=== PATIENT | female | born 1985 | race Caucasian/White ===

== ENCOUNTER 2020-07-28 13:10 | Emergency (ER) | payer OTHER ==
[~2020-07-28] VITALS: Ht 165.1 cm; Wt 52.2 kg
[2020-07-28 15:32] LABS: ABSOLUTE BASOPHILS 0.1 thou/uL (0.0-0.2); ABSOLUTE EOSINOPHILS 0.1 thou/uL (0.0-0.7); ABSOLUTE LYMPHOCYTES 2.3 thou/uL (0.8-5.3); ABSOLUTE MONOCYTES 0.4 thou/uL (0.0-1.2); ABSOLUTE NEUTROPHILS 3.1 thou/uL (1.6-8.1); BASOPHILS 0.9 %; EOSINOPHILS 1.5 %; HEMATOCRIT 39.7 % (37.0-47.0); HEMOGLOBIN 13.3 gm/dL (12.0-15.0); MCH 31.4 pg (26.0-34.0); MCHC 33.6 g/dL (28.0-37.0); MCV 93.6 fL (80.0-100.0); MONOCYTES 6.4 %; MPV 6.9 fl. (7.2-11.1); NUCLEATED RBCS 0 /100WBC; PLATELET COUNT* 332 thou/uL (150-400); POLYS 52.2 %; RBC 4.24 mil/uL (4.20-5.00); RDW-CV 12.7 % (10.5-14.5); WBC 5.9 thou/uL (4.0-11.0)
[2020-07-28 15:49] LABS: CALCIUM 8.5 mg/dL (8.5-10.1); CREATININE 0.6 mg/dL (0.6-1.3)
[2020-07-28 15:59] LABS: MAGNESIUM 2.2 mg/dL (1.8-2.4); TOTAL BILIRUBIN 0.3 mg/dL (<0.1-1.0); TOTAL PROTEIN 7.7 g/dL (6.4-8.2)
[2020-07-28 17:05] VITALS: BP 96/60
--- NOTE | 2020-07-28 17:12 | EKG ---
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 : 1985 Requested By: Lan Ceron Order Number: [id number] MD: Miguelito Ritchie Measurements Intervals [place] Rate: 75 P: 65 HI: 144 QRS: 1 QRSD: 106 T: 38 QT: 409 QTc: 457 Interpretive Statements Sinus rhythm Rsr' in V1 Low voltage, precordial leads No previous ECG available for comparison Electronically Signed On 07-28-2020 17:12:16 [employer] by Miguelito Ritchie [email or web address] <ELECTRONICALLY SIGNED> By: Miguelito Ritchie MD, [facility] 07/28/20 1712 1548 1548 Miguelito Ritchie MD, [facility] /EPI
== END 2020-07-28 17:07 | disposition home or self-care (01) ==
LOC: M.ERS 13:10
PROVIDERS: Emergency Medicine Emergency Medical Services
DX: I10 Essential (primary) hypertension (principal)